=== PATIENT | female | born 1960 | race Caucasian/White ===

== ENCOUNTER 2022-04-08 16:07 | Inpatient (IN) ==
[2022-04-08 17:09] LABS: ABS Basophils 0.1 10^3/ul (0-0.2); ABS Eosinophils 0.4 10^3/ul (0-0.6); ABS Lymphocytes 0.4 10^3/ul (1.0-4.8); ABS Monocytes 0.1 10^3/ul (0-0.8); ABS Neutrophils 1.7 10^3/ul (1.5-7.7); Eosinophil % 15.5 %; Hematocrit 23 % (35-47); Hemoglobin 7.4 g/dL (12.0-16.0); Lymphocyte % 15.6 %; Mean Corpuscular HGB Conc 32 g/dL (31-36); Mean Corpuscular Hemoglobin 31 pg (27-31); Mean Corpuscular Volume 97 fL (80-97); Mean Platelet Volume 7.1 fL (7.4-10.4); Platelet Count 144 10^3/uL (150-450); Red Blood Count 2.39 10^6 /uL (3.70-4.87); Red Cell Distribution Width 16 % (10-15); White Blood Count 2.9 10^3/uL (3.5-10.8)
[2022-04-08 17:15] LABS: INR 1.12 (0.86-1.15)
[2022-04-08 17:42] LABS: Albumin 3.7 g/dL (3.2-5.2); Albumin/Globulin Ratio 1.2 (1-3); Calcium 8.8 mg/dL (8.6-10.3); Globulin 3.1 g/dL (2-4); Potassium 3.4 mmol/L (3.5-5.0); Total Bilirubin 0.7 mg/dL (0.2-1.0); Total Protein 6.8 g/dL (6.4-8.9); eGFR CKD-EPI 18.7 (>60)
[2022-04-08 18:37] LABS: High Sensitivity Troponin 1 Hr 16 pg/mL (<15)
[2022-04-08] MEDS ORDERED: Labetalol 300 mg TAB PO ONE (21:10)
[2022-04-08] MEDS ORDERED: Polyethylene Glycol 3350 17 GM PACKET PO PRN (21:18)
[2022-04-08] MEDS ORDERED: Magnesium Hydroxide LIQ 30 ML UDC PO PRN (21:18)
[2022-04-08] MEDS ORDERED: Senna TAB 8.6 mg TAB PO PRN (21:18)
[2022-04-08] MEDS: Magnesium Hydroxide LIQ 30 ML UDC PO SCH (22:47)
[2022-04-08 23:16] LABS: Corrected Retic Count 1.3 % (0.5-1.5); Hematocrit for Retic CNT 23 % (35-47); Immature Retic Fraction 0.49; RBC Retic Count 2.34 10^6/uL (3.70-4.87)
[2022-04-08 23:49] LABS: Folate 6.24 ng/mL (5.90-24.80)
[2022-04-09 00:20] LABS: Anisocytosis 1+
[2022-04-09 06:01] LABS: ABS Basophils 0.1 10^3/ul (0-0.2); ABS Eosinophils 0.5 10^3/ul (0-0.6); ABS Lymphocytes 0.5 10^3/ul (1.0-4.8); ABS Monocytes 0.2 10^3/ul (0-0.8); ABS Neutrophils 2.3 10^3/ul (1.5-7.7); Eosinophil % 13.6 %; Hematocrit 22 % (35-47); Hemoglobin 7.3 g/dL (12.0-16.0); Lymphocyte % 13.6 %; Mean Corpuscular HGB Conc 34 g/dL (31-36); Mean Corpuscular Hemoglobin 33 pg (27-31); Mean Corpuscular Volume 97 fL (80-97); Mean Platelet Volume 7.6 fL (7.4-10.4); Platelet Count 131 10^3/uL (150-450); Red Cell Distribution Width 16 % (10-15); White Blood Count 3.5 10^3/uL (3.5-10.8)
[2022-04-09 06:20] LABS: Calcium 8.5 mg/dL (8.6-10.3); Potassium 4.1 mmol/L (3.5-5.0); eGFR CKD-EPI 13.1 (>60)
[2022-04-09] MEDS: Labetalol 300 mg TAB PO SCH ×3 (08:27→21:54)
[2022-04-09] MEDS: Lanthanum 500 mg CHEW TAB PO SCH ×3 (08:29→18:54)
[2022-04-09] MEDS: Magnesium Hydroxide LIQ 30 ML UDC PO SCH ×2 (08:31→21:52)
[2022-04-09] MEDS ORDERED: Pneumococcal Vac 23-Polyvalent IM ONE (09:00)
[2022-04-09] MEDS ORDERED: fentaNYL 100 mcg/2 ml 50 MCG/ML VIAL ONE (15:28)
[2022-04-09] MEDS ORDERED: Midazolam 10 mg/10 ml VIAL 1 mg/ml 10 ml VIAL (10 mg) ONE (15:28)
[2022-04-10 05:23] LABS: ABS Basophils 0.1 10^3/ul (0-0.2); ABS Eosinophils 0.5 10^3/ul (0-0.6); ABS Lymphocytes 0.5 10^3/ul (1.0-4.8); ABS Monocytes 0.2 10^3/ul (0-0.8); ABS Neutrophils 2.5 10^3/ul (1.5-7.7); Eosinophil % 13.3 %; Hematocrit 21 % (35-47); Lymphocyte % 13.1 %; Mean Corpuscular HGB Conc 33 g/dL (31-36); Mean Corpuscular Hemoglobin 32 pg (27-31); Mean Corpuscular Volume 97 fL (80-97); Mean Platelet Volume 7.2 fL (7.4-10.4); Platelet Count 126 10^3/uL (150-450); Red Blood Count 2.19 10^6 /uL (3.70-4.87); Red Cell Distribution Width 16 % (10-15); White Blood Count 3.7 10^3/uL (3.5-10.8)
[2022-04-10 05:45] LABS: Calcium 8.3 mg/dL (8.6-10.3); Potassium 4.7 mmol/L (3.5-5.0); eGFR CKD-EPI 8.6 (>60)
[2022-04-10] MEDS: Magnesium Hydroxide LIQ 30 ML UDC PO SCH ×2 (08:08→21:52)
[2022-04-10] MEDS: Lanthanum 500 mg CHEW TAB PO SCH ×3 (08:09→17:45)
[2022-04-10] MEDS: Labetalol 300 mg TAB PO SCH ×3 (08:09→21:52)
[2022-04-10 10:41] LABS: Hematocrit 21 % (35-47); Hemoglobin 6.8 g/dL (12.0-16.0)
[2022-04-10 12:52] LABS: Hepatitis B Surface Antigen Nonreactive (Nonreactive)
[2022-04-10 12:57] LABS: Hepatitis B Core IgM Nonreactive (Nonreactive)
[2022-04-10 13:09] LABS: Hepatitis B Surface Ab Immune (Immune)
[2022-04-10] MEDS ORDERED: PEG 3000 GI LAVAGE 1 GALLON PO ONE ×2 (14:37→17:22)
[2022-04-10 14:59] LABS: Ferritin 235.9 ng/mL (11-307)
[2022-04-10 18:09] LABS: Hematocrit 26 % (35-47); Hemoglobin 8.2 g/dL (12.0-16.0)
[2022-04-11 07:35] LABS: Hematocrit 24 % (35-47); Hemoglobin 7.9 g/dL (12.0-16.0); Mean Corpuscular HGB Conc 33 g/dL (31-36); Mean Corpuscular Hemoglobin 31 pg (27-31); Mean Corpuscular Volume 95 fL (80-97); Mean Platelet Volume 7.3 fL (7.4-10.4); Platelet Count 117 10^3/uL (150-450); Red Blood Count 2.52 10^6 /uL (3.70-4.87); Red Cell Distribution Width 17 % (10-15); White Blood Count 3.5 10^3/uL (3.5-10.8)
[2022-04-11 08:18] LABS: Calcium 8.9 mg/dL (8.6-10.3); Potassium 4.3 mmol/L (3.5-5.0); eGFR CKD-EPI 12.6 (>60)
[2022-04-11] MEDS: Lanthanum 500 mg CHEW TAB PO SCH ×4 (08:34→17:15)
[2022-04-11] MEDS ORDERED: PEG 3000 GI LAVAGE 1 GALLON PO ONE ×2 (09:00→12:00)
[2022-04-11] MEDS: Magnesium Hydroxide LIQ 30 ML UDC PO SCH ×2 (09:23→20:38)
[2022-04-11] MEDS: Labetalol 300 mg TAB PO SCH ×2 (09:35→20:22)
[2022-04-12 05:55] LABS: Hematocrit 24 % (35-47); Hemoglobin 8.2 g/dL (12.0-16.0); Mean Corpuscular HGB Conc 34 g/dL (31-36); Mean Corpuscular Hemoglobin 32 pg (27-31); Mean Corpuscular Volume 95 fL (80-97); Mean Platelet Volume 7.7 fL (7.4-10.4); Platelet Count 104 10^3/uL (150-450); Red Blood Count 2.55 10^6 /uL (3.70-4.87); Red Cell Distribution Width 17 % (10-15); White Blood Count 2.6 10^3/uL (3.5-10.8)
[2022-04-12 06:14] LABS: Calcium 8.8 mg/dL (8.6-10.3); Magnesium 1.9 mg/dL (1.9-2.7); Potassium 4.3 mmol/L (3.5-5.0); eGFR CKD-EPI 10.5 (>60)
[2022-04-12] MEDS: Labetalol 300 mg TAB PO SCH ×2 (11:25→21:26)
[2022-04-12] MEDS: Lanthanum 500 mg CHEW TAB PO SCH ×3 (11:25→17:10)
[2022-04-12] MEDS: Magnesium Hydroxide LIQ 30 ML UDC PO SCH ×2 (11:26→21:36)
[2022-04-12] MEDS ORDERED: Lidocaine 1% MPF 5 ML VIAL ONE (11:35)
[2022-04-12] MEDS ORDERED: Heparin 2 UNITS/ML IVPREMIX 2,000 UNIT/1,000 ML BAG IV ONE (11:35)
[2022-04-12] MEDS ORDERED: Iodixanol 320 (CONTRAST) 100 ML SDV ONE (11:44)
[2022-04-12] MEDS ORDERED: fentaNYL 100 mcg/2 ml 50 MCG/ML VIAL ONE ×2 (11:45→14:57)
[2022-04-12] MEDS ORDERED: Midazolam 5 mg/5 ml VIAL 1 mg/ml 5 ml VIAL (5 mg) ONE (11:45)
[2022-04-12] MEDS ORDERED: Midazolam 10 mg/10 ml VIAL 1 mg/ml 10 ml VIAL (10 mg) ONE (14:56)
[2022-04-13 07:13] LABS: Hematocrit 25 % (35-47); Hemoglobin 8.1 g/dL (12.0-16.0); Mean Corpuscular HGB Conc 33 g/dL (31-36); Mean Corpuscular Hemoglobin 32 pg (27-31); Mean Corpuscular Volume 96 fL (80-97); Mean Platelet Volume 7.6 fL (7.4-10.4); Platelet Count 111 10^3/uL (150-450); Red Blood Count 2.58 10^6 /uL (3.70-4.87); Red Cell Distribution Width 17 % (10-15); White Blood Count 4.7 10^3/uL (3.5-10.8)
[2022-04-13 07:29] LABS: Calcium 8.6 mg/dL (8.6-10.3); Magnesium 1.9 mg/dL (1.9-2.7); Potassium 4.4 mmol/L (3.5-5.0); eGFR CKD-EPI 11.7 (>60)
[2022-04-13] MEDS: Labetalol 300 mg TAB PO SCH (10:29)
[2022-04-13] MEDS: Magnesium Hydroxide LIQ 30 ML UDC PO SCH (10:31)
[2022-04-13] MEDS: Lanthanum 500 mg CHEW TAB PO SCH ×2 (10:31→13:00)
[2022-04-13 13:16] VITALS: BP 159/65
== END 2022-04-13 15:58 | disposition home or self-care (01) | DRG 981 ==
LOC: EDHOLD 16:07 → ED 16:07 → SUATTDRO 20:51 → MEDTELE 04-09 00:51 → SUATTDRO 04-10 10:00
PROVIDERS: ADMIT Student in an Organized Health Care Education/Training Program; ATTEND Student in an Organized Health Care Education/Training Program

== ENCOUNTER 2022-07-10 09:53 | Inpatient (IN) ==
[2022-07-10 11:36] LABS: ABS Eosinophils 0.5 10^3/ul (0-0.6); ABS Lymphocytes 0.5 10^3/ul (1.0-4.8); ABS Monocytes 0.2 10^3/ul (0-0.8); ABS Neutrophils 2.4 10^3/ul (1.5-7.7); Eosinophil % 14.7 %; Hematocrit 19 % (35-47); Lymphocyte % 13.9 %; Mean Corpuscular HGB Conc 32 g/dL (31-36); Mean Corpuscular Hemoglobin 32 pg (27-31); Mean Corpuscular Volume 100 fL (80-97); Mean Platelet Volume 7.9 fL (7.4-10.4); Nucleated Red Blood Cells % 0.2; Platelet Count 211 10^3/uL (150-450); Red Blood Count 1.89 10^6 /uL (3.70-4.87); Red Cell Distribution Width 18 % (10-15); White Blood Count 3.5 10^3/uL (3.5-10.8)
[2022-07-10 11:48] LABS: Blood Urea Nitrogen 53 mg/dL (6-24); CO2 Carbon Dioxide 27 mmol/L (22-32); Calcium 8.5 mg/dL (8.6-10.3); Chloride 96 mmol/L (101-111); Glucose 142 mg/dL (70-100); Sodium 135 mmol/L (135-145); eGFR CKD-EPI 8.6 (>60)
[2022-07-10 11:52] LABS: Anion Gap 12 mmol/L (2-11)
[2022-07-10] MEDS ORDERED: Ondansetron 4 mg VIAL 2 MG/ML 2 ml VIAL IV PRN (12:53)
[2022-07-10 12:54] LABS: Potassium Redraw 4.2 mmol/L (3.5-5.0)
[2022-07-10] MEDS ORDERED: Midazolam 5 mg/5 ml VIAL 1 mg/ml 5 ml VIAL (5 mg) ONE (13:36)
[2022-07-10] MEDS ORDERED: fentaNYL 100 mcg/2 ml 50 MCG/ML VIAL ONE (13:36)
[2022-07-10] MEDS ORDERED: Dextrose 50% Syringe 50 ml 25 GM/50 ML SYRINGE IV PUSH PRN ×2 (14:09)
[2022-07-10 14:32] LABS: Total Iron Binding Capacity 293 mcg/dL (250-450); Transferrin 209 mg/dL (203-362)
[2022-07-10 14:47] LABS: Folate 11.85 ng/mL (5.90-24.80)
[2022-07-10 14:48] LABS: Vitamin B12 353 pg/mL (180-914)
[2022-07-10 15:27] LABS: Ferritin 250.4 ng/mL (11-307)
[2022-07-10 15:29] LABS: Corrected Retic Count 3.1 % (0.5-1.5); Hematocrit for Retic CNT 19 % (35-47); Immature Retic Fraction 0.65; RBC Retic Count 1.83 10^6/uL (3.70-4.87)
[2022-07-10 16:16] LABS: Unsaturated Iron Binding 238 ug/dL
[2022-07-10 16:18] LABS: % Iron Saturation 19 % (15-55)
[2022-07-10 18:23] LABS: Hematocrit 21 % (35-47); Hemoglobin 6.8 g/dL (12.0-16.0)
[2022-07-10 20:28] LABS: Hepatitis B Surface Antigen Nonreactive (Nonreactive)
[2022-07-10 20:34] LABS: Hepatitis B Core IgM Nonreactive (Nonreactive)
[2022-07-10 20:46] LABS: Hepatitis C Antibody Negative (Negative)
[2022-07-10] MEDS: Labetalol 300 mg TAB PO SCH (21:34)
[2022-07-10] MEDS: Pantoprazole VIAL 40 MG VIAL IV SCH (21:34)
[2022-07-11 05:14] LABS: ABS Basophils 0.1 10^3/ul (0-0.2); ABS Eosinophils 0.6 10^3/ul (0-0.6); ABS Lymphocytes 0.5 10^3/ul (1.0-4.8); ABS Monocytes 0.2 10^3/ul (0-0.8); ABS Neutrophils 2.5 10^3/ul (1.5-7.7); Eosinophil % 14.3 %; Hematocrit 23 % (35-47); Hemoglobin 7.6 g/dL (12.0-16.0); Lymphocyte % 14.1 %; Mean Corpuscular HGB Conc 33 g/dL (31-36); Mean Corpuscular Hemoglobin 32 pg (27-31); Mean Corpuscular Volume 96 fL (80-97); Mean Platelet Volume 7.1 fL (7.4-10.4); Nucleated Red Blood Cells % 0.1; Platelet Count 156 10^3/uL (150-450); Red Blood Count 2.41 10^6 /uL (3.70-4.87); Red Cell Distribution Width 19 % (10-15); White Blood Count 3.9 10^3/uL (3.5-10.8)
[2022-07-11 05:29] LABS: Magnesium 1.8 mg/dL (1.9-2.7); Potassium 4.5 mmol/L (3.5-5.0); eGFR CKD-EPI 7.1 (>60)
[2022-07-11] MEDS ORDERED: PEG 3000 GI LAVAGE 1 GALLON PO ONE (09:00)
[2022-07-11 09:18] LABS: Hepatitis A Ab IgM Negative (Negative)
[2022-07-11] MEDS: Labetalol 300 mg TAB PO SCH ×2 (09:20→20:23)
[2022-07-11] MEDS: Pantoprazole VIAL 40 MG VIAL IV SCH ×2 (09:24→20:23)
[2022-07-11 14:39] LABS: Hepatitis B Surface Ab Immune (Immune)
[2022-07-11] MEDS ORDERED: Acetaminophen IV 1 GM/100ML 1,000 MG/100 ML BAG IV PRN (19:44)
[2022-07-11 20:36] LABS: Hematocrit 25 % (35-47); Hemoglobin 8.2 g/dL (12.0-16.0)
[2022-07-11 21:49] LABS: High Sensitivity Troponin 1 Hr 10 pg/mL (<15)
[2022-07-12 06:25] LABS: Calcium 8.1 mg/dL (8.6-10.3); Potassium 3.7 mmol/L (3.5-5.0)
[2022-07-12 06:40] LABS: eGFR CKD-EPI 12.8 (>60)
[2022-07-12 11:35] LABS: ABS Basophils 0.1 10^3/ul (0-0.2); ABS Eosinophils 0.4 10^3/ul (0-0.6); ABS Lymphocytes 0.4 10^3/ul (1.0-4.8); ABS Monocytes 0.1 10^3/ul (0-0.8); ABS Neutrophils 1.5 10^3/ul (1.5-7.7); Eosinophil % 16.9 %; Hematocrit 24 % (35-47); Hemoglobin 7.9 g/dL (12.0-16.0); Lymphocyte % 15.1 %; Mean Corpuscular HGB Conc 33 g/dL (31-36); Mean Corpuscular Hemoglobin 31 pg (27-31); Mean Corpuscular Volume 95 fL (80-97); Mean Platelet Volume 6.9 fL (7.4-10.4); Platelet Count 156 10^3/uL (150-450); Red Blood Count 2.52 10^6 /uL (3.70-4.87); Red Cell Distribution Width 19 % (10-15); White Blood Count 2.6 10^3/uL (3.5-10.8)
[2022-07-12] MEDS: Labetalol 300 mg TAB PO SCH ×3 (13:33→22:25)
[2022-07-12] MEDS: Pantoprazole VIAL 40 MG VIAL IV SCH ×3 (13:33→22:25)
[2022-07-12] MEDS ORDERED: Midazolam 10 mg/10 ml VIAL 1 mg/ml 10 ml VIAL (10 mg) ONE (16:10)
[2022-07-12] MEDS ORDERED: fentaNYL 100 mcg/2 ml 50 MCG/ML VIAL ONE (16:10)
[2022-07-12] MEDS ORDERED: Midazolam 5 mg/5 ml VIAL 1 mg/ml 5 ml VIAL (5 mg) ONE (16:10)
[2022-07-13 08:23] LABS: ABS Basophils 0.1 10^3/ul (0-0.2); ABS Eosinophils 0.4 10^3/ul (0-0.6); ABS Lymphocytes 0.5 10^3/ul (1.0-4.8); ABS Monocytes 0.2 10^3/ul (0-0.8); ABS Neutrophils 1.7 10^3/ul (1.5-7.7); Eosinophil % 14.9 %; Hematocrit 23 % (35-47); Hemoglobin 7.9 g/dL (12.0-16.0); Lymphocyte % 16.6 %; Mean Corpuscular HGB Conc 34 g/dL (31-36); Mean Corpuscular Hemoglobin 32 pg (27-31); Mean Corpuscular Volume 96 fL (80-97); Mean Platelet Volume 6.6 fL (7.4-10.4); Platelet Count 143 10^3/uL (150-450); Red Blood Count 2.43 10^6 /uL (3.70-4.87); Red Cell Distribution Width 19 % (10-15)
[2022-07-13] MEDS: Pantoprazole VIAL 40 MG VIAL IV SCH (09:22)
[2022-07-13] MEDS: Labetalol 300 mg TAB PO SCH (09:22)
[2022-07-13 09:30] LABS: Calcium 8.2 mg/dL (8.6-10.3); Potassium 4.8 mmol/L (3.5-5.0); eGFR CKD-EPI 13.8 (>60)
[2022-07-13 11:35] VITALS: BP 151/60
[2022-07-15] MEDS ORDERED: Heparin 1,000 UNIT/ML 10 ml (10,000 UNITS) CATHLAB/DIALYSIS DIALYSIS SCH (09:00)
== END 2022-07-13 13:40 | disposition home or self-care (01) | DRG 377 ==
LOC: EDHOLD 09:53 → ED 09:53 → SUATTDRO 12:53 → EDHOLD 14:58 → SSU 17:05
PROVIDERS: ADMIT Internal Medicine; ATTEND Student in an Organized Health Care Education/Training Program

== ENCOUNTER 2022-08-05 18:58 | Inpatient (IN) ==
[2022-08-05 19:49] LABS: INR 1.03 (0.89-1.11)
[2022-08-05 19:53] LABS: Hematocrit 15 % (35-47); Mean Corpuscular HGB Conc 32 g/dL (31-36); Mean Corpuscular Hemoglobin 31 pg (27-31); Mean Corpuscular Volume 98 fL (80-97); Mean Platelet Volume 6.8 fL (7.4-10.4); Platelet Count 191 10^3/uL (150-450); Red Blood Count 1.51 10^6 /uL (3.70-4.87); Red Cell Distribution Width 19 % (10-15); White Blood Count 3.6 10^3/uL (3.5-10.8)
[2022-08-05 20:03] LABS: Albumin 3.4 g/dL (3.2-5.2); Albumin/Globulin Ratio 1.2 (1-3); Calcium 8.6 mg/dL (8.6-10.3); Globulin 2.9 g/dL (2-4); Total Bilirubin 0.4 mg/dL (0.2-1.0); Total Protein 6.3 g/dL (6.4-8.9); eGFR CKD-EPI 18.9 (>60)
[2022-08-05 21:20] LABS: Hemoglobin 4.7 g/dL (12.0-16.0)
[2022-08-05 21:46] LABS: ABS Basophils 0.1 10^3/ul (0-0.2); ABS Eosinophils 0.3 10^3/ul (0-0.6); ABS Lymphocytes 0.4 10^3/ul (1.0-4.8); ABS Monocytes 0.2 10^3/ul (0-0.8); ABS Neutrophils 2.6 10^3/ul (1.5-7.7); ABS Nucleated RBC 0.1 10^3/ul; Eosinophil % 7.7 %; Nucleated Red Blood Cells % 1.3
[2022-08-05 22:00] LABS: High Sensitivity Troponin 1 Hr 15 pg/mL (<15)
[2022-08-06] MEDS: Pantoprazole VIAL 40 MG VIAL IV SCH ×3 (00:18→20:59)
[2022-08-06 03:49] LABS: Hematocrit 16 % (35-47); Hemoglobin 5.2 g/dL (12.0-16.0); Mean Corpuscular HGB Conc 33 g/dL (31-36); Mean Corpuscular Hemoglobin 32 pg (27-31); Mean Corpuscular Volume 96 fL (80-97); Mean Platelet Volume 6.8 fL (7.4-10.4); Platelet Count 169 10^3/uL (150-450); Red Blood Count 1.64 10^6 /uL (3.70-4.87); Red Cell Distribution Width 18 % (10-15); White Blood Count 3.4 10^3/uL (3.5-10.8)
[2022-08-06] MEDS ORDERED: Ondansetron 4 mg VIAL 2 MG/ML 2 ml VIAL IV ONE (04:04)
[2022-08-06 06:46] LABS: ABS Basophils 0.1 10^3/ul (0-0.2); ABS Eosinophils 0.2 10^3/ul (0-0.6); ABS Lymphocytes 0.5 10^3/ul (1.0-4.8); ABS Monocytes 0.2 10^3/ul (0-0.8); ABS Neutrophils 2.1 10^3/ul (1.5-7.7); Eosinophil % 7.4 %; Hematocrit 16 % (35-47); Hemoglobin 5.4 g/dL (12.0-16.0); Lymphocyte % 16.9 %; Mean Corpuscular HGB Conc 33 g/dL (31-36); Mean Corpuscular Hemoglobin 32 pg (27-31); Mean Corpuscular Volume 95 fL (80-97); Mean Platelet Volume 6.8 fL (7.4-10.4); Nucleated Red Blood Cells % 0.1; Platelet Count 162 10^3/uL (150-450); Red Blood Count 1.72 10^6 /uL (3.70-4.87); Red Cell Distribution Width 18 % (10-15); White Blood Count 3.2 10^3/uL (3.5-10.8)
[2022-08-06 07:02] LABS: Calcium 8.2 mg/dL (8.6-10.3); Magnesium 1.7 mg/dL (1.9-2.7); Phosphorus 4.6 mg/dL (2.5-5.0); eGFR CKD-EPI 15.4 (>60)
[2022-08-06] MEDS ORDERED: Labetalol 300 mg TAB PO SCH (09:00)
[2022-08-06] MEDS ORDERED: Furosemide 20 mg/2 ml IV VIAL IV ONE (10:10)
[2022-08-06] MEDS ORDERED: PEG 3000 GI LAVAGE 1 GALLON PO ONE (17:54)
[2022-08-06] MEDS: Metoprolol Tartrate 5 mg VIAL 5 ml VIAL (1 mg/ml) IV SCH ×2 (18:37→20:06)
[2022-08-06] MEDS: hydrALAZINE 20 mg/ml 1 ML Vial IV IV SLOW PU SCH ×3 (18:37→23:52)
[2022-08-06] MEDS: Furosemide 20 mg/2 ml IV VIAL IV SCH (18:37)
[2022-08-06 18:41] LABS: ABS Basophils 0.1 10^3/ul (0-0.2); ABS Eosinophils 0.3 10^3/ul (0-0.6); ABS Lymphocytes 0.6 10^3/ul (1.0-4.8); ABS Monocytes 0.2 10^3/ul (0-0.8); ABS Neutrophils 2.2 10^3/ul (1.5-7.7); Eosinophil % 9.8 %; Hematocrit 23 % (35-47); Hemoglobin 7.5 g/dL (12.0-16.0); Lymphocyte % 16.9 %; Mean Corpuscular HGB Conc 33 g/dL (31-36); Mean Corpuscular Hemoglobin 31 pg (27-31); Mean Corpuscular Volume 93 fL (80-97); Mean Platelet Volume 6.4 fL (7.4-10.4); Platelet Count 164 10^3/uL (150-450); Red Blood Count 2.44 10^6 /uL (3.70-4.87); Red Cell Distribution Width 18 % (10-15); White Blood Count 3.4 10^3/uL (3.5-10.8)
[2022-08-06] MEDS ORDERED: Zosyn per Pharmacy NOTE FOLLOW UP SCH (19:00)
[2022-08-07 00:50] LABS: Hematocrit 24 % (35-47); Hemoglobin 7.7 g/dL (12.0-16.0)
[2022-08-07] MEDS: Metoprolol Tartrate 5 mg VIAL 5 ml VIAL (1 mg/ml) IV SCH ×5 (03:41→13:12)
[2022-08-07] MEDS: hydrALAZINE 20 mg/ml 1 ML Vial IV IV SLOW PU SCH ×2 (05:03→18:13)
[2022-08-07 07:45] LABS: ABS Basophils 0.1 10^3/ul (0-0.2); ABS Eosinophils 0.4 10^3/ul (0-0.6); ABS Lymphocytes 0.6 10^3/ul (1.0-4.8); ABS Monocytes 0.2 10^3/ul (0-0.8); ABS Neutrophils 1.8 10^3/ul (1.5-7.7); Eosinophil % 12.4 %; Hematocrit 23 % (35-47); Hemoglobin 7.6 g/dL (12.0-16.0); Lymphocyte % 18.8 %; Mean Corpuscular HGB Conc 33 g/dL (31-36); Mean Corpuscular Hemoglobin 32 pg (27-31); Mean Corpuscular Volume 95 fL (80-97); Mean Platelet Volume 6.8 fL (7.4-10.4); Platelet Count 158 10^3/uL (150-450); Red Blood Count 2.41 10^6 /uL (3.70-4.87); Red Cell Distribution Width 18 % (10-15); White Blood Count 3.1 10^3/uL (3.5-10.8)
[2022-08-07 08:12] LABS: Calcium 8.5 mg/dL (8.6-10.3); Potassium 3.9 mmol/L (3.5-5.0); eGFR CKD-EPI 14.6 (>60)
[2022-08-07] MEDS: Pantoprazole VIAL 40 MG VIAL IV SCH ×2 (09:00→20:00)
[2022-08-07] MEDS ORDERED: hydrALAZINE 20 mg/ml 1 ML Vial IV IV SLOW PU SCH (10:06)
[2022-08-07 13:14] LABS: ABS Basophils 0.1 10^3/ul (0-0.2); ABS Eosinophils 0.3 10^3/ul (0-0.6); ABS Lymphocytes 0.5 10^3/ul (1.0-4.8); ABS Monocytes 0.2 10^3/ul (0-0.8); ABS Neutrophils 1.9 10^3/ul (1.5-7.7); Eosinophil % 11.2 %; Hematocrit 24 % (35-47); Lymphocyte % 16.8 %; Mean Corpuscular HGB Conc 34 g/dL (31-36); Mean Corpuscular Hemoglobin 32 pg (27-31); Mean Corpuscular Volume 94 fL (80-97); Mean Platelet Volume 6.6 fL (7.4-10.4); Platelet Count 155 10^3/uL (150-450); Red Blood Count 2.53 10^6 /uL (3.70-4.87); Red Cell Distribution Width 18 % (10-15)
[2022-08-07] MEDS: Furosemide 20 mg/2 ml IV VIAL IV SCH (14:25)
[2022-08-07 18:09] LABS: ABS Basophils 0.2 10^3/ul (0-0.2); ABS Eosinophils 0.4 10^3/ul (0-0.6); ABS Lymphocytes 0.5 10^3/ul (1.0-4.8); ABS Monocytes 0.2 10^3/ul (0-0.8); ABS Neutrophils 1.8 10^3/ul (1.5-7.7); Eosinophil % 12.6 %; Hematocrit 26 % (35-47); Hemoglobin 8.5 g/dL (12.0-16.0); Lymphocyte % 15.8 %; Mean Corpuscular HGB Conc 33 g/dL (31-36); Mean Corpuscular Hemoglobin 31 pg (27-31); Mean Corpuscular Volume 94 fL (80-97); Mean Platelet Volume 6.5 fL (7.4-10.4); Platelet Count 179 10^3/uL (150-450); Red Blood Count 2.78 10^6 /uL (3.70-4.87); Red Cell Distribution Width 18 % (10-15)
[2022-08-07 21:16] LABS: Hepatitis B Surface Antigen Nonreactive (Nonreactive)
[2022-08-07 21:21] LABS: Hepatitis B Core IgM Nonreactive (Nonreactive)
[2022-08-07 21:33] LABS: Hepatitis B Surface Ab Immune (Immune)
[2022-08-08] MEDS: hydrALAZINE 20 mg/ml 1 ML Vial IV IV SLOW PU SCH ×3 (00:39→12:22)
[2022-08-08 07:00] LABS: ABS Basophils 0.1 10^3/ul (0-0.2); ABS Eosinophils 0.4 10^3/ul (0-0.6); ABS Lymphocytes 0.5 10^3/ul (1.0-4.8); ABS Monocytes 0.3 10^3/ul (0-0.8); ABS Neutrophils 2.6 10^3/ul (1.5-7.7); Eosinophil % 9.6 %; Hematocrit 24 % (35-47); Lymphocyte % 13.8 %; Mean Corpuscular HGB Conc 34 g/dL (31-36); Mean Corpuscular Hemoglobin 32 pg (27-31); Mean Corpuscular Volume 95 fL (80-97); Mean Platelet Volume 6.6 fL (7.4-10.4); Nucleated Red Blood Cells % 0.1; Platelet Count 159 10^3/uL (150-450); Red Blood Count 2.49 10^6 /uL (3.70-4.87); Red Cell Distribution Width 19 % (10-15); White Blood Count 3.9 10^3/uL (3.5-10.8)
[2022-08-08 07:41] LABS: Calcium 8.3 mg/dL (8.6-10.3); Potassium 4.4 mmol/L (3.5-5.0)
[2022-08-08] MEDS: Furosemide 20 mg/2 ml IV VIAL IV SCH (09:40)
[2022-08-08] MEDS: Pantoprazole VIAL 40 MG VIAL IV SCH ×2 (09:41→20:52)
[2022-08-08] MEDS ORDERED: hydrALAZINE 20 mg/ml 1 ML Vial IV IV SLOW PU PRN (14:45)
[2022-08-09 06:22] LABS: ABS Basophils 0.1 10^3/ul (0-0.2); ABS Eosinophils 0.4 10^3/ul (0-0.6); ABS Lymphocytes 0.7 10^3/ul (1.0-4.8); ABS Monocytes 0.3 10^3/ul (0-0.8); ABS Neutrophils 2.6 10^3/ul (1.5-7.7); Eosinophil % 9.7 %; Hematocrit 24 % (35-47); Hemoglobin 7.9 g/dL (12.0-16.0); Lymphocyte % 16.5 %; Mean Corpuscular HGB Conc 33 g/dL (31-36); Mean Corpuscular Hemoglobin 32 pg (27-31); Mean Corpuscular Volume 95 fL (80-97); Mean Platelet Volume 6.5 fL (7.4-10.4); Platelet Count 160 10^3/uL (150-450); Red Blood Count 2.49 10^6 /uL (3.70-4.87); Red Cell Distribution Width 19 % (10-15)
[2022-08-09 06:52] LABS: Calcium 8.2 mg/dL (8.6-10.3); eGFR CKD-EPI 10.1 (>60)
[2022-08-09] MEDS: Pantoprazole VIAL 40 MG VIAL IV SCH (08:49)
[2022-08-09 16:16] VITALS: BP 168/88
== END 2022-08-09 18:30 | disposition home or self-care (01) | DRG 811 ==
LOC: ED 18:58 → EDHOLD 21:20 → SUATTDRO 21:20 → EDHOLD 08-06 14:44 → MEDTELE 08-06 17:00
PROVIDERS: ADMIT Internal Medicine; ATTEND Hospitalist

== ENCOUNTER 2022-08-21 12:29 | Inpatient (IN) ==
[2022-08-21 15:32] LABS: ABS Basophils 0.1 10^3/ul (0-0.2); ABS Eosinophils 0.4 10^3/ul (0-0.6); ABS Lymphocytes 0.5 10^3/ul (1.0-4.8); ABS Monocytes 0.2 10^3/ul (0-0.8); ABS Neutrophils 1.6 10^3/ul (1.5-7.7); Eosinophil % 14.6 %; Hematocrit 21 % (35-47); Hemoglobin 6.6 g/dL (12.0-16.0); Lymphocyte % 17.8 %; Mean Corpuscular HGB Conc 32 g/dL (31-36); Mean Corpuscular Hemoglobin 31 pg (27-31); Mean Corpuscular Volume 99 fL (80-97); Mean Platelet Volume 6.9 fL (7.4-10.4); Nucleated Red Blood Cells % 0.1; Platelet Count 160 10^3/uL (150-450); Red Blood Count 2.11 10^6 /uL (3.70-4.87); Red Cell Distribution Width 18 % (10-15); White Blood Count 2.7 10^3/uL (3.5-10.8)
[2022-08-21 15:42] LABS: INR 1.07 (0.89-1.11)
[2022-08-21 16:20] LABS: ALT 9 U/L (7-52); AST 17 U/L (13-39); Albumin 3.6 g/dL (3.2-5.2); Albumin/Globulin Ratio 1.2 (1-3); Alkaline Phosphatase 102 U/L (35-149); Anion Gap 8 mmol/L (2-11); Blood Urea Nitrogen 53 mg/dL (6-24); C Reactive Protein < 1.00 mg/L (<8.01); CO2 Carbon Dioxide 29 mmol/L (22-32); Calcium 8.4 mg/dL (8.6-10.3); Chloride 96 mmol/L (101-111); Globulin 2.9 g/dL (2-4); Glucose 158 mg/dL (70-100); Potassium 4.8 mmol/L (3.5-5.0); Sodium 133 mmol/L (135-145); Total Protein 6.5 g/dL (6.4-8.9); eGFR CKD-EPI 9.1 (>60)
[2022-08-21 17:57] LABS: Corrected Retic Count 3.1 % (0.5-1.5); Hematocrit for Retic CNT 21 % (35-47); Immature Retic Fraction 0.64; RBC Retic Count 2.08 10^6/uL (3.70-4.87)
[2022-08-21 18:07] LABS: % Iron Saturation 15 % (15-55); Iron 48 ug/dL (50-212); Total Iron Binding Capacity 319 mcg/dL (250-450); Transferrin 228 mg/dL (203-362); Unsaturated Iron Binding 271 ug/dL
[2022-08-21 18:33] LABS: Folate 7.35 ng/mL (5.90-24.80); Vitamin B12 362 pg/mL (180-914)
[2022-08-21] MEDS ORDERED: Labetalol 300 mg TAB PO SCH (21:00)
[2022-08-22 07:08] LABS: ABS Basophils 0.1 10^3/ul (0-0.2); ABS Eosinophils 0.5 10^3/ul (0-0.6); ABS Lymphocytes 0.4 10^3/ul (1.0-4.8); ABS Monocytes 0.1 10^3/ul (0-0.8); ABS Neutrophils 2.2 10^3/ul (1.5-7.7); Eosinophil % 13.7 %; Hematocrit 21 % (35-47); Hemoglobin 7.1 g/dL (12.0-16.0); Lymphocyte % 13.3 %; Mean Corpuscular HGB Conc 34 g/dL (31-36); Mean Corpuscular Hemoglobin 32 pg (27-31); Mean Corpuscular Volume 96 fL (80-97); Mean Platelet Volume 6.9 fL (7.4-10.4); Platelet Count 143 10^3/uL (150-450); Red Blood Count 2.21 10^6 /uL (3.70-4.87); Red Cell Distribution Width 18 % (10-15); White Blood Count 3.3 10^3/uL (3.5-10.8)
[2022-08-22 07:25] LABS: Calcium 8.1 mg/dL (8.6-10.3); eGFR CKD-EPI 7.7 (>60)
[2022-08-22 07:33] LABS: Potassium 5.3 mmol/L (3.5-5.0)
[2022-08-22] MEDS: Lanthanum 500 mg CHEW TAB PO SCH ×3 (07:59→17:33)
[2022-08-22 09:06] LABS: TSH Ultra Thyroid Stim Horm 6.76 mcIU/mL (0.34-5.60)
[2022-08-22 15:40] LABS: Free T4 0.85 ng/dL (0.61-1.12)
[2022-08-22 18:33] LABS: Hematocrit 22 % (35-47)
[2022-08-23 06:14] LABS: ABS Basophils 0.1 10^3/ul (0-0.2); ABS Eosinophils 0.4 10^3/ul (0-0.6); ABS Lymphocytes 0.6 10^3/ul (1.0-4.8); ABS Monocytes 0.2 10^3/ul (0-0.8); ABS Neutrophils 2.2 10^3/ul (1.5-7.7); Eosinophil % 12.6 %; Hematocrit 20 % (35-47); Hemoglobin 6.8 g/dL (12.0-16.0); Mean Corpuscular HGB Conc 34 g/dL (31-36); Mean Corpuscular Hemoglobin 32 pg (27-31); Mean Corpuscular Volume 95 fL (80-97); Mean Platelet Volume 6.6 fL (7.4-10.4); Nucleated Red Blood Cells % 0.1; Platelet Count 135 10^3/uL (150-450); Red Blood Count 2.13 10^6 /uL (3.70-4.87); Red Cell Distribution Width 18 % (10-15); White Blood Count 3.5 10^3/uL (3.5-10.8)
[2022-08-23 06:48] LABS: Magnesium 1.6 mg/dL (1.9-2.7); Potassium 4.8 mmol/L (3.5-5.0); eGFR CKD-EPI 11.4 (>60)
[2022-08-23] MEDS ORDERED: Ondansetron 4 mg VIAL 2 MG/ML 2 ml VIAL IV ONE (07:32)
[2022-08-23] MEDS: Lanthanum 500 mg CHEW TAB PO SCH ×3 (08:50→17:52)
[2022-08-23] MEDS ORDERED: Senna TAB 8.6 mg TAB PO PRN (10:53)
[2022-08-23] MEDS ORDERED: Magnesium Hydroxide LIQ 30 ML UDC PO PRN (10:53)
[2022-08-23] MEDS ORDERED: Ondansetron 4 mg VIAL 2 MG/ML 2 ml VIAL IV PRN (11:30)
[2022-08-23 17:05] LABS: Hematocrit 26 % (35-47); Hemoglobin 8.5 g/dL (12.0-16.0)
[2022-08-24] MEDS: Lanthanum 500 mg CHEW TAB PO SCH ×3 (08:12→17:45)
[2022-08-24 08:45] LABS: Hematocrit 26 % (35-47); Hemoglobin 8.4 g/dL (12.0-16.0)
[2022-08-25 06:24] LABS: Hematocrit 25 % (35-47); Hemoglobin 8.1 g/dL (12.0-16.0)
[2022-08-25] MEDS: Lanthanum 500 mg CHEW TAB PO SCH ×3 (09:24→16:59)
[2022-08-25] MEDS ORDERED: PEG 3000 GI LAVAGE 1 GALLON PO ONE ×2 (12:50→14:27)
[2022-08-26] MEDS ORDERED: PEG 3000 GI LAVAGE 1 GALLON PO ONE ×2 (03:08→10:39)
[2022-08-26] MEDS: Lanthanum 500 mg CHEW TAB PO SCH ×3 (08:53→17:33)
[2022-08-26 13:04] LABS: ABS Basophils 0.1 10^3/ul (0-0.2); ABS Eosinophils 0.4 10^3/ul (0-0.6); ABS Lymphocytes 0.5 10^3/ul (1.0-4.8); ABS Monocytes 0.1 10^3/ul (0-0.8); ABS Neutrophils 1.6 10^3/ul (1.5-7.7); Eosinophil % 15.3 %; Hematocrit 25 % (35-47); Hemoglobin 8.1 g/dL (12.0-16.0); Lymphocyte % 17.3 %; Mean Corpuscular HGB Conc 33 g/dL (31-36); Mean Corpuscular Hemoglobin 31 pg (27-31); Mean Corpuscular Volume 95 fL (80-97); Mean Platelet Volume 7.1 fL (7.4-10.4); Platelet Count 144 10^3/uL (150-450); Red Blood Count 2.62 10^6 /uL (3.70-4.87); Red Cell Distribution Width 17 % (10-15); White Blood Count 2.7 10^3/uL (3.5-10.8)
[2022-08-26 13:28] LABS: Calcium 8.4 mg/dL (8.6-10.3); Magnesium 1.6 mg/dL (1.9-2.7); eGFR CKD-EPI 13.3 (>60)
[2022-08-26] MEDS ORDERED: fentaNYL 100 mcg/2 ml 50 MCG/ML VIAL ONE (13:58)
[2022-08-26] MEDS ORDERED: Midazolam 5 mg/5 ml VIAL 1 mg/ml 5 ml VIAL (5 mg) ONE (13:58)
[2022-08-26 16:27] LABS: Kappa Free Light Chain 18.4 mg/dL; Lambda Free Light Chain, S 8.47 mg/dL
[2022-08-26 20:11] LABS: Anaplasma phagocytophilum Negative (Negative); B. miyamotoi PCR, B Negative (Negative); Babesia divergens/MO-1 Negative (Negative); Babesia ducani Negative (Negative); Ehrlichia chaffeensis Negative (Negative); Ehrlichia ewingii/canis Negative (Negative); Ehrlichia muris eauclairensis Negative (Negative)
[2022-08-26] MEDS: Labetalol 300 mg TAB PO SCH (20:26)
[2022-08-27 06:20] LABS: Hematocrit 24 % (35-47); Mean Corpuscular HGB Conc 34 g/dL (31-36); Mean Corpuscular Hemoglobin 32 pg (27-31); Mean Corpuscular Volume 96 fL (80-97); Mean Platelet Volume 6.8 fL (7.4-10.4); Platelet Count 138 10^3/uL (150-450); Red Blood Count 2.47 10^6 /uL (3.70-4.87); Red Cell Distribution Width 17 % (10-15); White Blood Count 3.2 10^3/uL (3.5-10.8)
[2022-08-27 06:49] LABS: Calcium 7.9 mg/dL (8.6-10.3); Magnesium 1.5 mg/dL (1.9-2.7); Potassium 4.6 mmol/L (3.5-5.0); eGFR CKD-EPI 9.3 (>60)
[2022-08-27] MEDS: Labetalol 300 mg TAB PO SCH (09:34)
[2022-08-27] MEDS: Lanthanum 500 mg CHEW TAB PO SCH ×2 (09:35→12:19)
[2022-08-27 11:34] VITALS: BP 149/67
[2022-08-27 12:21] LABS: Albumin 2.7 g/dL (3.4-4.7); Albumin/Globulin Ratio 0.89; Gamma Globulin 1.4 g/dL (0.6-1.6); Total Protein(PEP) 5.8 g/dL (6.3 - 7.9)
== END 2022-08-27 16:00 | disposition home or self-care (01) | DRG 811 ==
LOC: ED 12:29 → EDHOLD 12:29 → SUATTDRO 16:52 → EDHOLD 19:15 → MED 20:30 → SUATTDRO 08-22 16:18
PROVIDERS: ADMIT Internal Medicine; ATTEND Family Medicine

== ENCOUNTER 2022-09-08 14:54 | Observation (INO) ==
[2022-09-08 16:39] LABS: ABS Basophils 0.2 10^3/ul (0-0.2); ABS Eosinophils 0.4 10^3/ul (0-0.6); ABS Lymphocytes 0.5 10^3/ul (1.0-4.8); ABS Monocytes 0.2 10^3/ul (0-0.8); ABS Neutrophils 2.1 10^3/ul (1.5-7.7); Eosinophil % 11.8 %; Hematocrit 20 % (35-47); Hemoglobin 6.3 g/dL (12.0-16.0); Lymphocyte % 14.7 %; Mean Corpuscular HGB Conc 32 g/dL (31-36); Mean Corpuscular Hemoglobin 32 pg (27-31); Mean Corpuscular Volume 99 fL (80-97); Mean Platelet Volume 6.9 fL (7.4-10.4); Nucleated Red Blood Cells % 0.1; Platelet Count 146 10^3/uL (150-450); Red Blood Count 1.99 10^6 /uL (3.70-4.87); Red Cell Distribution Width 17 % (10-15); White Blood Count 3.3 10^3/uL (3.5-10.8)
[2022-09-08 17:08] LABS: Albumin 3.5 g/dL (3.2-5.2); Albumin/Globulin Ratio 1.3 (1-3); Calcium 7.9 mg/dL (8.6-10.3); Creatinine, Serum 4.81 mg/dL (0.51-0.95); Globulin 2.7 g/dL (2-4); Total Bilirubin 0.5 mg/dL (0.2-1.0); Total Protein 6.2 g/dL (6.4-8.9); eGFR CKD-EPI 9.6 (>60)
[2022-09-08 17:21] LABS: Potassium 5.1 mmol/L (3.5-5.0)
[2022-09-09 06:38] LABS: ABS Eosinophils 0.4 10^3/ul (0-0.6); ABS Lymphocytes 0.4 10^3/ul (1.0-4.8); ABS Monocytes 0.1 10^3/ul (0-0.8); ABS Neutrophils 2.3 10^3/ul (1.5-7.7); Eosinophil % 12.6 %; Hematocrit 24 % (35-47); Hemoglobin 8.1 g/dL (12.0-16.0); Lymphocyte % 12.9 %; Mean Corpuscular HGB Conc 34 g/dL (31-36); Mean Corpuscular Hemoglobin 32 pg (27-31); Mean Corpuscular Volume 93 fL (80-97); Mean Platelet Volume 7.5 fL (7.4-10.4); Platelet Count 160 10^3/uL (150-450); Red Blood Count 2.56 10^6 /uL (3.70-4.87); Red Cell Distribution Width 17 % (10-15); White Blood Count 3.3 10^3/uL (3.5-10.8)
[2022-09-09 07:32] LABS: Albumin 3.4 g/dL (3.2-5.2); Albumin/Globulin Ratio 1.3 (1-3); Calcium 7.8 mg/dL (8.6-10.3); Creatinine, Serum 5.47 mg/dL (0.51-0.95); Globulin 2.6 g/dL (2-4); Total Bilirubin 0.6 mg/dL (0.2-1.0); eGFR CKD-EPI 8.2 (>60)
[2022-09-09 07:40] LABS: Potassium 5.1 mmol/L (3.5-5.0)
[2022-09-09] MEDS: Lanthanum 500 mg CHEW TAB PO SCH ×2 (08:56→12:18)
[2022-09-09] MEDS ORDERED: Labetalol 300 mg TAB PO SCH (09:00)
[2022-09-09 12:27] LABS: Hepatitis B Surface Antigen Nonreactive (Nonreactive)
[2022-09-09 12:44] LABS: Hepatitis B Surface Ab Immune (Immune)
[2022-09-09 19:49] VITALS: BP 167/81
== END 2022-09-09 19:30 | disposition home or self-care (01) ==
LOC: ED 14:54 → INTOOBSV 21:06 → EDHOLD 21:06 → MED 09-09 08:32
PROVIDERS: ADMIT Internal Medicine; ATTEND Internal Medicine

== ENCOUNTER 2022-09-27 13:13 | Inpatient (IN) ==
[2022-09-27 15:17] LABS: Hematocrit 18 % (35-47); Hemoglobin 5.8 g/dL (12.0-16.0); Mean Corpuscular HGB Conc 32 g/dL (31-36); Mean Corpuscular Hemoglobin 32 pg (27-31); Mean Corpuscular Volume 100 fL (80-97); Mean Platelet Volume 7.4 fL (7.4-10.4); Platelet Count 115 10^3/uL (150-450); Red Blood Count 1.83 10^6 /uL (3.70-4.87); Red Cell Distribution Width 18 % (10-15); White Blood Count 2.8 10^3/uL (3.5-10.8)
[2022-09-27 15:55] LABS: ALT 8 U/L (7-52); AST 14 U/L (13-39); Albumin 3.4 g/dL (3.2-5.2); Albumin/Globulin Ratio 1.3 (1-3); Alkaline Phosphatase 95 U/L (35-149); Blood Urea Nitrogen 62 mg/dL (6-24); CO2 Carbon Dioxide 26 mmol/L (22-32); Calcium 8.2 mg/dL (8.6-10.3); Chloride 97 mmol/L (101-111); Globulin 2.7 g/dL (2-4); Glucose 185 mg/dL (70-100); Sodium 133 mmol/L (135-145); Total Protein 6.1 g/dL (6.4-8.9); eGFR CKD-EPI 9.6 (>60)
[2022-09-27 15:59] LABS: ABS Eosinophils 0.4 10^3/ul (0-0.6); ABS Lymphocytes 0.5 10^3/ul (1.0-4.8); ABS Monocytes 0.2 10^3/ul (0-0.8); ABS Neutrophils 1.7 10^3/ul (1.5-7.7); Eosinophil % 15.4 %; Lymphocyte % 16.6 %; Nucleated Red Blood Cells % 0.1
[2022-09-27 16:02] LABS: Anion Gap 10 mmol/L (2-11); Potassium 5.3 mmol/L (3.5-5.0)
[2022-09-27 17:02] LABS: LDH 167 U/L (140-271)
[2022-09-27 17:03] LABS: Hematocrit for Retic CNT 18 % (35-47); RBC Retic Count 1.83 10^6/uL (3.70-4.87)
[2022-09-27 17:08] LABS: Corrected Retic Count 1.7 % (0.5-1.5); Immature Retic Fraction 0.55
[2022-09-27 17:18] LABS: C Reactive Protein < 1.00 mg/L (<8.01)
[2022-09-27 17:21] LABS: Albumin 3.4 g/dL (3.2-5.2); Albumin/Globulin Ratio 1.3 (1-3); Calcium 8.1 mg/dL (8.6-10.3); Globulin 2.6 g/dL (2-4); Total Bilirubin 0.5 mg/dL (0.2-1.0); eGFR CKD-EPI 9.3 (>60)
[2022-09-27 17:30] LABS: Potassium 5.1 mmol/L (3.5-5.0)
[2022-09-27 17:45] LABS: Vitamin B12 348 pg/mL (180-914)
[2022-09-27] MEDS ORDERED: Iron Sucrose 200 MG in NS 0.9% 100 ml BAG 100 ML IVPB ONE (18:18)
[2022-09-27 22:37] LABS: Hematocrit 20 % (35-47); Hemoglobin 6.4 g/dL (12.0-16.0); Mean Corpuscular HGB Conc 32 g/dL (31-36); Mean Corpuscular Hemoglobin 32 pg (27-31); Mean Corpuscular Volume 99 fL (80-97); Mean Platelet Volume 7.4 fL (7.4-10.4); Platelet Count 102 10^3/uL (150-450); Red Blood Count 2.02 10^6 /uL (3.70-4.87); Red Cell Distribution Width 19 % (10-15)
[2022-09-27] MEDS: Labetalol 300 mg TAB PO SCH (23:55)
[2022-09-28] MEDS: Labetalol 300 mg TAB PO SCH ×3 (08:38→20:09)
[2022-09-28] MEDS: Lanthanum 500 mg CHEW TAB PO SCH ×3 (09:24→18:00)
[2022-09-28 09:51] LABS: ABS Basophils 0.1 10^3/ul (0-0.2); ABS Eosinophils 0.5 10^3/ul (0-0.6); ABS Lymphocytes 0.5 10^3/ul (1.0-4.8); ABS Monocytes 0.1 10^3/ul (0-0.8); ABS Neutrophils 2.1 10^3/ul (1.5-7.7); Hematocrit 24 % (35-47); Hemoglobin 7.7 g/dL (12.0-16.0); Lymphocyte % 15.1 %; Mean Corpuscular HGB Conc 33 g/dL (31-36); Mean Corpuscular Hemoglobin 32 pg (27-31); Mean Corpuscular Volume 97 fL (80-97); Mean Platelet Volume 7.6 fL (7.4-10.4); Nucleated Red Blood Cells % 0.1; Platelet Count 112 10^3/uL (150-450); Red Blood Count 2.42 10^6 /uL (3.70-4.87); Red Cell Distribution Width 20 % (10-15); White Blood Count 3.3 10^3/uL (3.5-10.8)
[2022-09-28 09:57] LABS: INR 1.12 (0.88-1.18)
[2022-09-28] MEDS ORDERED: Metoclopramide LIQUID 1 mg/ml 10 ml ORAL.SOLN (10 mg) PO PRN (14:33)
[2022-09-28 16:40] LABS: ABS Basophils 0.1 10^3/ul (0-0.2); ABS Eosinophils 0.4 10^3/ul (0-0.6); ABS Lymphocytes 0.4 10^3/ul (1.0-4.8); ABS Monocytes 0.1 10^3/ul (0-0.8); ABS Neutrophils 1.7 10^3/ul (1.5-7.7); Hematocrit 22 % (35-47); Hemoglobin 7.1 g/dL (12.0-16.0); Lymphocyte % 13.8 %; Mean Corpuscular HGB Conc 33 g/dL (31-36); Mean Corpuscular Hemoglobin 31 pg (27-31); Mean Corpuscular Volume 96 fL (80-97); Mean Platelet Volume 7.1 fL (7.4-10.4); Platelet Count 113 10^3/uL (150-450); Red Blood Count 2.27 10^6 /uL (3.70-4.87); Red Cell Distribution Width 20 % (10-15); White Blood Count 2.7 10^3/uL (3.5-10.8)
[2022-09-28 17:22] LABS: Albumin 3.4 g/dL (3.2-5.2); Albumin/Globulin Ratio 1.3 (1-3); Calcium 8.1 mg/dL (8.6-10.3); Globulin 2.6 g/dL (2-4); Potassium 3.6 mmol/L (3.5-5.0); Total Bilirubin 0.7 mg/dL (0.2-1.0); eGFR CKD-EPI 17.6 (>60)
[2022-09-28 22:43] LABS: ABS Basophils 0.1 10^3/ul (0-0.2); ABS Eosinophils 0.4 10^3/ul (0-0.6); ABS Lymphocytes 0.4 10^3/ul (1.0-4.8); ABS Monocytes 0.2 10^3/ul (0-0.8); ABS Neutrophils 1.8 10^3/ul (1.5-7.7); Eosinophil % 14.7 %; Hematocrit 24 % (35-47); Hemoglobin 7.6 g/dL (12.0-16.0); Lymphocyte % 14.3 %; Mean Corpuscular HGB Conc 32 g/dL (31-36); Mean Corpuscular Hemoglobin 31 pg (27-31); Mean Corpuscular Volume 97 fL (80-97); Mean Platelet Volume 7.5 fL (7.4-10.4); Nucleated Red Blood Cells % 0.1; Platelet Count 117 10^3/uL (150-450); Red Blood Count 2.44 10^6 /uL (3.70-4.87); Red Cell Distribution Width 19 % (10-15); White Blood Count 2.9 10^3/uL (3.5-10.8)
[2022-09-29 07:09] LABS: ABS Basophils 0.1 10^3/ul (0-0.2); ABS Eosinophils 0.5 10^3/ul (0-0.6); ABS Lymphocytes 0.4 10^3/ul (1.0-4.8); ABS Monocytes 0.2 10^3/ul (0-0.8); Eosinophil % 14.4 %; Hematocrit 24 % (35-47); Hemoglobin 7.6 g/dL (12.0-16.0); Lymphocyte % 14.3 %; Mean Corpuscular HGB Conc 32 g/dL (31-36); Mean Corpuscular Hemoglobin 31 pg (27-31); Mean Corpuscular Volume 98 fL (80-97); Mean Platelet Volume 7.5 fL (7.4-10.4); Nucleated Red Blood Cells % 0.1; Platelet Count 118 10^3/uL (150-450); Red Blood Count 2.41 10^6 /uL (3.70-4.87); Red Cell Distribution Width 19 % (10-15); White Blood Count 3.1 10^3/uL (3.5-10.8)
[2022-09-29] MEDS: Lanthanum 500 mg CHEW TAB PO SCH ×4 (08:13→17:24)
[2022-09-29] MEDS: Labetalol 300 mg TAB PO SCH ×3 (08:40→20:39)
[2022-09-29] MEDS ORDERED: fentaNYL 100 mcg/2 ml 50 MCG/ML VIAL ONE (12:38)
[2022-09-29] MEDS ORDERED: Midazolam 5 mg/5 ml VIAL 1 mg/ml 5 ml VIAL (5 mg) ONE (12:38)
[2022-09-29 16:25] LABS: ALT 8 U/L (7-52); Albumin 3.5 g/dL (3.2-5.2); Albumin/Globulin Ratio 1.3 (1-3); Alkaline Phosphatase 96 U/L (35-149); Blood Urea Nitrogen 52 mg/dL (6-24); CO2 Carbon Dioxide 24 mmol/L (22-32); Calcium 8.4 mg/dL (8.6-10.3); Chloride 98 mmol/L (101-111); Globulin 2.8 g/dL (2-4); Glucose 166 mg/dL (70-100); Sodium 132 mmol/L (135-145); Total Protein 6.3 g/dL (6.4-8.9); eGFR CKD-EPI 9.7 (>60)
[2022-09-29 17:07] LABS: Anion Gap 10 mmol/L (2-11)
[2022-09-29 20:17] LABS: Potassium Redraw 4.9 mmol/L (3.5-5.0)
[2022-09-30 06:25] LABS: ABS Basophils 0.1 10^3/ul (0-0.2); ABS Eosinophils 0.4 10^3/ul (0-0.6); ABS Lymphocytes 0.6 10^3/ul (1.0-4.8); ABS Monocytes 0.2 10^3/ul (0-0.8); ABS Neutrophils 2.2 10^3/ul (1.5-7.7); Eosinophil % 12.1 %; Hematocrit 21 % (35-47); Hemoglobin 7.2 g/dL (12.0-16.0); Lymphocyte % 17.8 %; Mean Corpuscular HGB Conc 34 g/dL (31-36); Mean Corpuscular Hemoglobin 32 pg (27-31); Mean Corpuscular Volume 96 fL (80-97); Mean Platelet Volume 7.3 fL (7.4-10.4); Nucleated Red Blood Cells % 0.1; Platelet Count 123 10^3/uL (150-450); Red Blood Count 2.23 10^6 /uL (3.70-4.87); Red Cell Distribution Width 18 % (10-15); White Blood Count 3.6 10^3/uL (3.5-10.8)
[2022-09-30] MEDS: Labetalol 300 mg TAB PO SCH ×4 (07:54→20:57)
[2022-09-30] MEDS: Lanthanum 500 mg CHEW TAB PO SCH ×4 (07:55→17:35)
[2022-10-01 06:24] LABS: ABS Basophils 0.1 10^3/ul (0-0.2); ABS Eosinophils 0.4 10^3/ul (0-0.6); ABS Lymphocytes 0.5 10^3/ul (1.0-4.8); ABS Monocytes 0.2 10^3/ul (0-0.8); ABS Neutrophils 2.1 10^3/ul (1.5-7.7); Eosinophil % 12.3 %; Hematocrit 23 % (35-47); Hemoglobin 7.6 g/dL (12.0-16.0); Lymphocyte % 13.9 %; Mean Corpuscular HGB Conc 33 g/dL (31-36); Mean Corpuscular Hemoglobin 32 pg (27-31); Mean Corpuscular Volume 98 fL (80-97); Mean Platelet Volume 7.1 fL (7.4-10.4); Nucleated Red Blood Cells % 0.1; Platelet Count 126 10^3/uL (150-450); Red Blood Count 2.36 10^6 /uL (3.70-4.87); Red Cell Distribution Width 19 % (10-15); White Blood Count 3.3 10^3/uL (3.5-10.8)
[2022-10-01] MEDS: Labetalol 300 mg TAB PO SCH ×3 (08:11→19:40)
[2022-10-01] MEDS: Lanthanum 500 mg CHEW TAB PO SCH ×3 (08:12→17:41)
[2022-10-01] MEDS ORDERED: Lidocaine 1% MPF 5 ML VIAL ONE (09:37)
[2022-10-01] MEDS ORDERED: Iodixanol 320 (CONTRAST) 100 ML SDV ONE (09:38)
[2022-10-01] MEDS ORDERED: Heparin 2 UNITS/ML IVPREMIX 1,000 UNIT/500 ML BAG IV ONE ×2 (09:38→10:11)
[2022-10-01] MEDS ORDERED: Midazolam 5 mg/5 ml VIAL 1 mg/ml 5 ml VIAL (5 mg) ONE (09:50)
[2022-10-01] MEDS ORDERED: fentaNYL 100 mcg/2 ml 50 MCG/ML VIAL ONE (09:51)
[2022-10-01] MEDS ORDERED: Heparin DRIP 25,000 UNITS BAG 0 UNITS/0 ML BAG ONE (10:10)
[2022-10-02 07:12] LABS: ABS Basophils 0.1 10^3/ul (0-0.2); ABS Eosinophils 0.4 10^3/ul (0-0.6); ABS Lymphocytes 0.5 10^3/ul (1.0-4.8); ABS Monocytes 0.2 10^3/ul (0-0.8); ABS Neutrophils 2.4 10^3/ul (1.5-7.7); Eosinophil % 12.5 %; Hematocrit 23 % (35-47); Hemoglobin 7.4 g/dL (12.0-16.0); Lymphocyte % 14.4 %; Mean Corpuscular HGB Conc 33 g/dL (31-36); Mean Corpuscular Hemoglobin 32 pg (27-31); Mean Corpuscular Volume 98 fL (80-97); Mean Platelet Volume 7.6 fL (7.4-10.4); Nucleated Red Blood Cells % 0.1; Platelet Count 126 10^3/uL (150-450); Red Blood Count 2.32 10^6 /uL (3.70-4.87); Red Cell Distribution Width 19 % (10-15); White Blood Count 3.6 10^3/uL (3.5-10.8)
[2022-10-02] MEDS: Lanthanum 500 mg CHEW TAB PO SCH ×2 (08:33→13:37)
[2022-10-02] MEDS: Labetalol 300 mg TAB PO SCH ×2 (08:34→13:37)
[2022-10-02 13:40] VITALS: BP 168/64
== END 2022-10-02 15:30 | disposition home health service (06) | DRG 981 ==
LOC: ED 13:13 → INTOOBSV 16:22 → EDHOLD 16:22 → SUATTDRO 16:22 → MED 21:50 → SUATTDRO 09-29 13:42
PROVIDERS: ADMIT Internal Medicine; ATTEND Internal Medicine Hematology & Oncology

== ENCOUNTER 2023-02-18 14:01 | Inpatient (IN) ==
[2023-02-18 15:03] LABS: Activated Partial Thrombo Time 48.7 seconds (26.0-38.0); INR 1.82 (0.88-1.18)
[2023-02-18 15:07] LABS: Hematocrit 33.1 % (35-45); Hemoglobin 10.9 g/dL (11.5-14.3); Mean Corpuscular Hemoglobin 31.7 pg (27-33); Mean Corpuscular Hgb Conc 32.9 g/dL (31-36); Mean Corpuscular Volume 96.4 fL (80-97); Mean Platelet Volume 8.2 fL (7.5-11.2); Platelet Count 97 10^3/uL (150-450); Red Blood Count 3.44 10^6/uL (3.63-4.92); Red Cell Distribution Width 17.7 % (12-17); White Blood Count 2.1 10^3/uL (3.8-11.8)
[2023-02-18] MEDS ORDERED: Lactated Ringers 1000 ml BAG 1,000 ML IV ONE ×4 (15:19→22:26)
[2023-02-18 15:49] LABS: Anisocytosis 2+
[2023-02-18 15:51] LABS: ABS Lymphocytes 0.2 10^3/ul (1.0-4.8); ABS Monocytes 0.1 10^3/ul (0.0-0.9); ABS Neutrophils 1.8 10^3/ul (1.5-7.6)
[2023-02-18 16:17] LABS: Albumin 2.7 g/dL (3.2-5.2); Albumin/Globulin Ratio 1.1 (1-3); C Reactive Protein 155.53 mg/L (<8.01); Calcium 7.2 mg/dL (8.6-10.3); Creatinine, Serum 6.58 mg/dL (0.51-0.95); Globulin 2.5 g/dL (2-4); Total Bilirubin 0.9 mg/dL (0.2-1.0); Total Protein 5.2 g/dL (6.4-8.9); eGFR CKD-EPI 6.6 (>60)
[2023-02-18 16:29] LABS: High Sensitivity Troponin 1 Hr 1180 pg/mL (<15)
[2023-02-18 16:43] LABS: Potassium 4.2 mmol/L (3.5-5.0)
[2023-02-18] MEDS ORDERED: Piperacillin/Tazobac ADVAN 3.375 GM in NS 0.9% 100 ml BAG 100 ML IV ONE (19:38)
[2023-02-18] MEDS ORDERED: Zosyn per Pharmacy NOTE FOLLOW UP SCH (20:00)
[2023-02-18 20:03] LABS: Magnesium 1.4 mg/dL (1.9-2.7)
[2023-02-18] MEDS ORDERED: Piperacillin/Tazobac 3.375 GM BAG ONE (20:16)
[2023-02-18] MEDS: Lactated Ringers 1000 ml BAG 1,000 ML IV ONE ×2 (20:28→20:50)
[2023-02-18] MEDS ORDERED: Magnesium Sulfate 2 gm BAG 2 GM/50 ML BAG IVPB ONE (20:53)
[2023-02-18] MEDS ORDERED: Vancomycin 750 MG in NS 0.9% 250 ml 250 ML IVPB ONE (21:29)
[2023-02-18] MEDS ORDERED: Vancomycin per Pharmacy 1 EA NOTE FOLLOW UP PRN (21:34)
[2023-02-18] MEDS ORDERED: Albumin Human 25% 25 GM/100 ML BTL IV PRN (21:45)
[2023-02-18] MEDS ORDERED: NS 0.9% 1000 ml BAG 100 ML IV PRN (21:45)
[2023-02-18] MEDS ORDERED: NS 0.9% 1000 ml BAG 200 ML IV PRN (21:45)
[2023-02-18] MEDS ORDERED: Albumin Human 25% 25 GM/100 ML BTL IV ONE (22:31)
[2023-02-18] MEDS: Heparin 5000 UNITS/ML 1 mL VIAL SUBCUT SCH (22:58)
[2023-02-18] MEDS ORDERED: Aspirin EC 325 mg TAB.EC PO ONE (23:33)
[2023-02-18] MEDS ORDERED: Ondansetron 4 mg VIAL 2 MG/ML 2 ml VIAL IV ONE (23:47)
[2023-02-18] MEDS ORDERED: Ondansetron 4 mg VIAL 2 MG/ML 2 ml VIAL IV PRN (23:48)
[2023-02-19] MEDS ORDERED: Lactated Ringers 1000 ml BAG 500 ML IV ONE (00:07)
[2023-02-19] MEDS ORDERED: ZOSYN 3.375 GM Q12H per EXTENDED INFUSION IV SCH (00:30)
[2023-02-19] MEDS ORDERED: EPINEPHrine SYR 0.1MG/ML 10 ml SYRINGE IV ONE ×3 (00:45→01:55)
[2023-02-19] MEDS ORDERED: Norepinephrine IV 1 MG/ML 4 ML VIAL ONE ×3 (00:45→01:55)
[2023-02-19] MEDS ORDERED: fentaNYL 100 mcg/2 ml 50 MCG/ML VIAL IV SLOW PU ONE ×3 (01:25→08:11)
[2023-02-19] MEDS ORDERED: fentaNYL 100 mcg/2 ml 50 MCG/ML VIAL ONE ×2 (01:30→03:49)
[2023-02-19] MEDS ORDERED: Propofol 10 mg/ml 100 ML BTL 0 MG/0 ML BTL ONE (01:44)
[2023-02-19] MEDS ORDERED: Atropine 1 MG/ML INJ 1 ML VIAL IV PUSH ONE ×2 (01:50→05:21)
[2023-02-19] MEDS ORDERED: Norepinephrine 16MCG/ML BAGD5W 4,000 MCG/250 ML BAG IV SCH (02:00)
[2023-02-19] MEDS ORDERED: Norepinephrine *QUAD STRENGTH* 16 mg/250 mL NS per protocol IV SCH (02:00)
[2023-02-19] MEDS ORDERED: Propofol 10 mg/ml 100 ML BTL 1,000 MG/100 ML BTL IV SCH (02:00)
[2023-02-19 02:14] LABS: PCO2 Arterial 49 mmHg (35-45); PO2 Arterial 94 mmHg (80-100)
[2023-02-19 02:19] LABS: ABS Lymphocytes 0.5 10^3/uL (1.0-4.8); ABS Monocytes 0.1 10^3/uL (0.0-0.9); ABS Neutrophils 1.5 10^3/uL (1.5-7.6); ABS Nucleated RBC 0.04 10^3/ul; Eosinophil % 1.3 %; Hematocrit 33.1 % (35-45); Hemoglobin 10.9 g/dL (11.5-14.3); Lymphocyte % 22.7 %; Mean Corpuscular Hemoglobin 31.5 pg (27-33); Mean Corpuscular Hgb Conc 32.8 g/dL (31-36); Mean Corpuscular Volume 95.9 fL (80-97); Mean Platelet Volume 8.5 fL (7.5-11.2); Nucleated Red Blood Cells % 1.6 /100 WBC (0.0-0.4); Platelet Count 53 10^3/uL (150-450); Red Blood Count 3.45 10^6/uL (3.63-4.92); Red Cell Distribution Width 18.2 % (12-17); White Blood Count 2.2 10^3/uL (3.8-11.8)
[2023-02-19] MEDS ORDERED: Phenylephrine IV 10 MG/ML 1 ml VIAL ONE (02:22)
[2023-02-19] MEDS ORDERED: Sodium Bicarbonate 8.4% SYR 50 ml SYRINGE IV ONE (02:39)
[2023-02-19 02:58] LABS: Albumin 2.4 g/dL (3.2-5.2); Albumin/Globulin Ratio 1.1 (1-3); Calcium 7.1 mg/dL (8.6-10.3); Creatinine, Serum 6.69 mg/dL (0.51-0.95); Globulin 2.2 g/dL (2-4); Total Bilirubin 1.2 mg/dL (0.2-1.0); Total Protein 4.6 g/dL (6.4-8.9); eGFR CKD-EPI 6.4 (>60)
[2023-02-19] MEDS ORDERED: Sodium Bicarb 8.4% Vial 50 ML 150 MEQ in D5W 1000 ml BAG 850 ML IV SCH (03:00)
[2023-02-19 03:06] LABS: Potassium 3.8 mmol/L (3.5-5.0)
[2023-02-19] MEDS ORDERED: [UNRECOGNIZED DRUG - REMARK] IV SCH (03:45)
[2023-02-19] MEDS: Chlorhexidine MOUTHWASH 0.12% 15 ML UDC TOPICAL SCH ×2 (04:02→05:44)
[2023-02-19] MEDS ORDERED: Vasopressin 100 UNITS in D5W 250 ml BAG 245 ML IV SCH (04:15)
[2023-02-19] MEDS ORDERED: VASOPRESSIN IVPREMIX BTL 40 UNIT/100 ML BTL IV SCH (04:15)
[2023-02-19] MEDS ORDERED: Phenylephrine DRIP 0.2 MG/ML in NS 0.9% 250 ML (PHA mix) IV SCH (04:15)
[2023-02-19] MEDS ORDERED: PHENYLEPHRINE DRIP IVPREMIX 50 MG/250 ML BAG IV SCH (05:00)
[2023-02-19] MEDS ORDERED: Calcium Gluconate 1 GM/10 ML VIAL (in Pyxis) IV PUSH ONE (05:21)
[2023-02-19] MEDS: Heparin 5000 UNITS/ML 1 mL VIAL SUBCUT SCH (05:44)
[2023-02-19 07:06] VITALS: BP 206/104
[2023-02-19] MEDS ORDERED: Lorazepam PYXIS KEY PRN (08:12)
[2023-02-19] MEDS ORDERED: LORazepam 2 mg VIAL 1 ml IV PUSH ONE (08:12)
[2023-02-19] MEDS ORDERED: LORazepam 2 mg VIAL 1 ml ONE (08:34)
[2023-02-19] MEDS ORDERED: Pantoprazole VIAL 40 MG VIAL IV SCH (09:00)
[2023-02-20] MEDS ORDERED: Vancomycin Random Level NOTE FOLLOW UP ONE (06:00)
== END 2023-02-19 09:01 | disposition expired | DRG 871 ==
LOC: ED 14:01 → EDHOLD 18:31 → MEDTELE 21:02 → ICU 02-19 01:09
PROVIDERS: ADMIT Internal Medicine; ATTEND Internal Medicine